=== PATIENT | female | born 2000 | race African-American/Black ===

== ENCOUNTER 2020-11-28 11:17 | Emergency (ER) | payer SELFPAY ==
[~2020-11-28] VITALS: Ht 160 cm; Wt 81.0 kg
[2020-11-28] MEDS ORDERED: IBUPROFEN 800MG TABLET PO ONE (11:45)
[2020-11-28] MEDS ORDERED: IBUP-2030 MT (12:14)
[2020-11-28 12:40] VITALS: BP 125/78
== END 2020-11-28 13:31 | disposition home or self-care (01) ==
LOC: ER 11:25
DX: S92.351A Displaced fracture of fifth metatarsal bone, right foot, initial encounter for closed fracture (principal); Z79.899 Other long term (current) drug therapy; X50.1XXA Overexertion from prolonged static or awkward postures, initial encounter; Y93.89 Activity, other specified; Y92.89 Other specified places as the place of occurrence of the external cause; Y99.8 Other external cause status
CPT/HCPCS: 29515; 73630; 81025; 99283